=== PATIENT | male | born 1950 | race Caucasian/White ===

== ENCOUNTER 2021-12-29 01:16 | Emergency (ER) | payer MEDICARE ==
[~2021-12-29] VITALS: Ht 177.8 cm; Wt 79.8 kg
[2021-12-29] MEDS ORDERED: CARVEDILOL12.5 MG PO (01:27)
[2021-12-29 05:00] LABS: ABSOLUTE BASOPHILS 0.1 thou/uL (0.0-0.2); ABSOLUTE EOSINOPHILS 0.7 thou/uL (0.0-0.7); ABSOLUTE LYMPHOCYTES 1.7 thou/uL (0.8-5.3); ABSOLUTE MONOCYTES 0.7 thou/uL (0.0-1.2); ABSOLUTE NEUTROPHILS 4.1 thou/uL (1.6-8.1); BASOPHILS 0.8 %; EOSINOPHILS 9.4 %; HEMATOCRIT 43.1 % (42.0-52.0); HEMOGLOBIN 14.8 gm/dL (14.0-18.0); LYMPHOCYTES 23.2 %; MCH 30.1 pg (26.0-34.0); MCHC 34.4 g/dL (28.0-37.0); MCV 87.4 fL (80.0-100.0); MONOCYTES 9.3 %; MPV 8.4 fl. (7.2-11.1); NUCLEATED RBCS 0 /100WBC; PLATELET COUNT* 201 thou/uL (150-400); POLYS 57.3 %; RBC 4.93 mil/uL (4.50-6.00); RDW-CV 13.9 % (10.5-14.5); WBC 7.2 thou/uL (4.0-11.0)
[2021-12-29 05:08] LABS: CALCIUM 9.4 mg/dL (8.5-10.1); CREATININE 0.9 mg/dL (0.6-1.3); POTASSIUM 4.5 mmol/L (3.5-5.1)
[2021-12-29 07:59] VITALS: BP 175/88
--- NOTE | 2021-12-29 09:41 | EKG ---
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
--- NOTE | 2021-12-29 09:44 | EKG ---
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 12/29/21 0943 0536 0536 Rex Tee MD, [facility] /EPI
== END 2021-12-29 07:59 | disposition home or self-care (01) ==
LOC: M.ERS 01:16
PROVIDERS: Emergency Medicine
DX: R74.8 Abnormal levels of other serum enzymes (principal); I10 Essential (primary) hypertension; E11.9 Type 2 diabetes mellitus without complications; Z95.828 Presence of other vascular implants and grafts; Z79.899 Other long term (current) drug therapy